=== PATIENT | female | born 1930 | race Caucasian/White ===

== ENCOUNTER 2017-10-23 12:03 | Inpatient (IN) | payer OTHER ==
[~2017-10-23] VITALS: Ht 149.9 cm; Wt 54.0 kg
[~2017-10-23 12:03] MED LIST: ACYCLOVIR 400400 MG PO; ASPIRIN81 M2 PO; FOLIC ACID1 MG PO; METHOTREXATE 22.5 MG PO; PREDNISONE 10 M10 MG PO; UNICOMPLEX M TA1 TA1 PO
[2017-10-23 12:20] LABS: HEMATOCRIT 36.1 % (37.0-47.0); HEMOGLOBIN 12.5 gm/dL (12.0-15.0); MCH 33.2 pg (26.0-34.0); MCHC 34.7 g/dL (28.0-37.0); MCV 95.7 fL (80.0-100.0); MPV 6.7 fl. (7.2-11.1); NUCLEATED RBCS 0 /100WBC; PLATELET COUNT* 308 thou/uL (150-400); RBC 3.77 mil/uL (4.20-5.00); RDW-CV 13.6 % (10.5-14.5); WBC 15.7 thou/uL (4.0-11.0)
[2017-10-23 12:32] LABS: ALBUMIN 2.7 g/dL (3.4-5.0); CALCIUM 9.2 mg/dL (8.5-10.1); CREATININE 0.7 mg/dL (0.6-1.3); TOTAL BILIRUBIN 0.6 mg/dL (<0.1-1.0); TOTAL PROTEIN 6.9 g/dL (6.4-8.2)
[2017-10-23 12:46] LABS: ABSOLUTE LYMPHOCYTES 0.8 thou/uL (0.8-5.3); ABSOLUTE MONOCYTES 0.5 thou/uL (0.0-1.2); ABSOLUTE NEUTROPHILS 14.4 thou/uL (1.6-8.1); PLATELET ESTIMATE ADEQUATE
[2017-10-23 15:00] VITALS: BP 120/46
[2017-10-23] MEDS ORDERED: HYDROCHLOROTH12.5 M1 PO (15:01)
[2017-10-23 15:48] LABS: URINE BILIRUBIN NEGATIVE (Negative); URINE BLOOD TRACE (Negative); URINE CLARITY CLEAR; URINE COLOR YELLOW; URINE GLUCOSE-RANDOM NEGATIVE (Negative); URINE KETONES NEGATIVE (Negative); URINE LEUKOCYTES-REFLEX TRACE (Negative); URINE NITRITE-REFLEX POSITIVE (Negative); URINE PROTEIN 1+ (Negative); URINE SPECIFIC GRAVITY 1.015 (1.005-1.030); URINE UROBILINOGEN 0.2 E.U./dl (0.2-1.0)
[2017-10-23 15:57] LABS: SQUAMOUS 4-10 Moderate /LPF (0-3); URINE RBC 3-10 Few /HPF (0-2); URINE WBC-REFLEX 6-15 Few /HPF (0-5); WBC CLUMPS Few (None Seen)
[2017-10-23 15:58] LABS: CASTS None Seen /LPF (None Seen); CRYSTALS None Seen /LPF (None Seen); MUCUS 4-6 Moderate strn/LPF (None Seen)
[2017-10-23 16:16] LABS: INFLUENZA A ANTIGEN None Detected (None Detect); INFLUENZA B ANTIGEN None Detected (None Detect)
[2017-10-23 20:15] VITALS: BP 139/55
[2017-10-23 23:23] VITALS: BP 130/53
[2017-10-24 04:16] LABS: ABSOLUTE LYMPHOCYTES 0.2 thou/uL (0.8-5.3); ABSOLUTE MONOCYTES 0.8 thou/uL (0.0-1.2); ABSOLUTE NEUTROPHILS 13.9 thou/uL (1.6-8.1); HEMATOCRIT 32.6 % (37.0-47.0); HEMOGLOBIN 11.4 gm/dL (12.0-15.0); LYMPHOCYTES 1.5 %; MCH 33.2 pg (26.0-34.0); MCV 95.1 fL (80.0-100.0); MONOCYTES 5.4 %; MPV 7.3 fl. (7.2-11.1); NUCLEATED RBCS 0 /100WBC; PLATELET COUNT* 305 thou/uL (150-400); POLYS 93.1 %; RBC 3.43 mil/uL (4.20-5.00); RDW-CV 14.3 % (10.5-14.5); WBC 14.9 thou/uL (4.0-11.0)
[2017-10-24 04:30] LABS: ALBUMIN 2.3 g/dL (3.4-5.0); CALCIUM 8.2 mg/dL (8.5-10.1); CREATININE 0.6 mg/dL (0.6-1.3); POTASSIUM 3.7 mmol/L (3.5-5.1); TOTAL BILIRUBIN 0.7 mg/dL (<0.1-1.0); TOTAL PROTEIN 5.4 g/dL (6.4-8.2)
[2017-10-24 05:00] VITALS: BP 156/78
[2017-10-24 07:55] VITALS: BP 129/61
--- NOTE | 2017-10-24 14:47 | EKG ---
[place] [address] ELECTROCARDIOGRAM REPORT Name: RAIZA SALEH Room: [address] ADM IN .R.#: [id number] Admission: 10/23/17 Attend Phys: Caryn Trivedi Discharge: Date of : 30 Report #: [id number] THIS REPORT FOR: //name// [facility] Test Date: 2017-10-23 Test Time: 16:33:11 Pat Name: RAIZA SALEH Department: Room: [address] Gender: F Behavioral Services Tech: : 1930 Requested By: Mark Bhakta Order Number: [id number] Edin MD: Pool Yeung Measurements Intervals Amma Rate: 97 P: 48 AL: 182 QRS: 77 QRSD: 112 T: 44 QT: 364 QTc: 463 Interpretive Statements Sinus rhythm LAE, consider biatrial enlargement Incomplete right bundle branch block Probable inferior infarct, old Electronically Signed On 10-24-2017 14:47:21 CDT by Pool Yeung [email or web address] <ELECTRONICALLY SIGNED> By: Pool Yeung MD, MERGED WITH [facility] 10/24/17 1447 1633 1633 Pool Yeung MD, MERGED WITH [facility] /EPI
[2017-10-24 16:00] VITALS: BP 154/68
[2017-10-25 04:27] LABS: ABSOLUTE LYMPHOCYTES 0.2 thou/uL (0.8-5.3); ABSOLUTE MONOCYTES 0.8 thou/uL (0.0-1.2); BASOPHILS 0.2 %; HEMATOCRIT 32.5 % (37.0-47.0); HEMOGLOBIN 11.5 gm/dL (12.0-15.0); LYMPHOCYTES 1.7 %; MCHC 35.4 g/dL (28.0-37.0); MCV 93.1 fL (80.0-100.0); MONOCYTES 5.7 %; MPV 7.3 fl. (7.2-11.1); NUCLEATED RBCS 0 /100WBC; PLATELET COUNT* 339 thou/uL (150-400); POLYS 92.4 %; RBC 3.49 mil/uL (4.20-5.00); RDW-CV 14.4 % (10.5-14.5); WBC 14.1 thou/uL (4.0-11.0)
[2017-10-25 04:39] LABS: ALBUMIN 2.3 g/dL (3.4-5.0); CALCIUM 8.5 mg/dL (8.5-10.1); CREATININE 0.6 mg/dL (0.6-1.3); POTASSIUM 3.2 mmol/L (3.5-5.1); TOTAL BILIRUBIN 0.5 mg/dL (<0.1-1.0); TOTAL PROTEIN 6.1 g/dL (6.4-8.2)
[2017-10-25 07:30] VITALS: BP 141/60
[2017-10-25 14:54] VITALS: BP 127/61
[2017-10-26 00:21] VITALS: BP 145/78
[2017-10-26 04:17] LABS: ABSOLUTE BASOPHILS 0.1 thou/uL (0.0-0.2); ABSOLUTE LYMPHOCYTES 0.3 thou/uL (0.8-5.3); ABSOLUTE MONOCYTES 1.1 thou/uL (0.0-1.2); ABSOLUTE NEUTROPHILS 20.5 thou/uL (1.6-8.1); BASOPHILS 0.3 %; HEMATOCRIT 32.6 % (37.0-47.0); HEMOGLOBIN 11.2 gm/dL (12.0-15.0); LYMPHOCYTES 1.4 %; MCH 32.3 pg (26.0-34.0); MCHC 34.5 g/dL (28.0-37.0); MCV 93.6 fL (80.0-100.0); MPV 7.2 fl. (7.2-11.1); NUCLEATED RBCS 0 /100WBC; PLATELET COUNT* 377 thou/uL (150-400); POLYS 93.3 %; RBC 3.48 mil/uL (4.20-5.00); RDW-CV 14.2 % (10.5-14.5)
[2017-10-26 04:33] LABS: ALBUMIN 2.2 g/dL (3.4-5.0); CALCIUM 8.9 mg/dL (8.5-10.1); CREATININE 0.6 mg/dL (0.6-1.3); POTASSIUM 4.4 mmol/L (3.5-5.1); TOTAL BILIRUBIN 0.6 mg/dL (<0.1-1.0); TOTAL PROTEIN 6.1 g/dL (6.4-8.2)
[2017-10-26 08:30] VITALS: BP 115/63
[2017-10-26 15:48] VITALS: BP 130/64
--- NOTE | 2017-10-26 16:02 | CON ---
[address] [address] CONSULTATION Name: RAIZA SALEH Room: [address] IN [facility]#: [id number] Admission: 10/23/17 Attend Phys: Caryn Trivedi Discharge: Date of : 30 Report #: [id number] THIS REPORT FOR: //name// CC: Pool Bhakta DATE OF SERVICE: 10/26/2017 ATTENDING PHYSICIAN: Dr. Bhakta. 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 HISTORY OF PRESENT ILLNESS: Chart reviewed, patient examined. This 87-year-old with history of rheumatoid arthritis, who was admitted at the request of her primary care physician due to last few days prior to admission with a cough, shortness of breath. Chest x-ray suggested basilar pneumonitis. 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 She notes remains weak, fatigued, although is intent on going home. She notes she has a poor appetite, poor p.o. intake, does have some ongoing residual dyspnea, abdominal related discomfort. Denies having difficulty voiding at this point. ALLERGIES: None known. MEDICATIONS: Include ipratropium, albuterol inhaler. Levofloxacin, promethazine, p.r.n. analgesics. PAST MEDICAL HISTORY: Includes rheumatoid arthritis, history of Almanza palsy, hypotension, bilateral cataracts, bunionectomy, hysterectomy, skin cancer excision, tonsillectomy. SOCIAL HISTORY: Nonsmoker, no ethanol. FAMILY HISTORY: Noncontributory. REVIEW OF SYSTEMS: As above. PHYSICAL EXAMINATION: GENERAL: She appears chronically ill, undernourished, is pleasant, cooperative, does have some degree of mild encephalopathy. She has a mild to moderate distress [place] [address] CONSULTATION Name: RAIZA SALEH Room: [address]#: [id number] Admission: 10/23/17 Attend Phys: Caryn Trivedi Discharge: Date of : 30 Report #: [id number] VITAL SIGNS: Temperature 98.2, pulse 110, respirations 18-20, blood pressure 115/63. SKIN: Warm, no rashes. HEENT: Unremarkable. NECK: Supple. LUNGS: Few scattered coarse breath sounds. HEART: Regular, tachycardic. I do not appreciate any murmur. ABDOMEN: Soft, nontender. There are no peritoneal signs. GENITOURINARY: Deferred. RECTAL: Deferred. LABORATORY DATA: Chest x-ray showed improving right lower lobe pneumonia, worsening left lower lobe infiltrate. CBC: White count of 22.0, H and H 11.2 and 32.6, platelets of 377. Albumin of 6.6. Electrolytes: Sodium 123, potassium 4.4 chloride 93, bicarbonate is 25, BUN and creatinine 11 and 0.6. AST of 48, ALT of 51. Albumin 2.2, total protein of 6.1, estimated GFR of 95. Urinalysis described above, greater than which are resistant to betalactams, nitrofurantoin, otherwise fairly susceptible. Blood cultures sterile thus far. ASSESSMENT: Complicated urinary tract infection due to moderately resistant to gram-negative susceptible to quinolones, should give us further good coverage with a pneumonitis as well. I think given her age, drop back to 500 daily. It is not quite clear why she has shown evidence of increasing white count, reported as formed stools, certainly if diarrhea, would evaluate for C. diff colitis, at risk due to the broad spectrum antimicrobials. She remains tenuous. <ELECTRONICALLY SIGNED> By: Kyaw Cazares MD 10/26/17 1602 1348 [id number] Cazares MD /nt
[2017-10-26 23:40] VITALS: BP 138/69
[2017-10-27 01:24] VITALS: BP 142/81
[2017-10-27 04:37] LABS: URINE BILIRUBIN NEGATIVE (Negative); URINE BLOOD 1+ (Negative); URINE CLARITY CLEAR; URINE COLOR YELLOW; URINE GLUCOSE-RANDOM NEGATIVE (Negative); URINE KETONES NEGATIVE (Negative); URINE LEUKOCYTES-REFLEX NEGATIVE (Negative); URINE NITRITE-REFLEX NEGATIVE (Negative); URINE PROTEIN 2+ (Negative); URINE SPECIFIC GRAVITY 1.025 (1.005-1.030); URINE UROBILINOGEN 0.2 E.U./dl (0.2-1.0)
[2017-10-27 05:22] LABS: ALBUMIN 2.1 g/dL (3.4-5.0); CREATININE 0.6 mg/dL (0.6-1.3); POTASSIUM 4.4 mmol/L (3.5-5.1); TOTAL BILIRUBIN 0.4 mg/dL (<0.1-1.0)
[2017-10-27 06:03] LABS: HEMATOCRIT 33.3 % (37.0-47.0); HEMOGLOBIN 11.3 gm/dL (12.0-15.0); MCHC 33.9 g/dL (28.0-37.0); MCV 94.3 fL (80.0-100.0); MPV 7.2 fl. (7.2-11.1); NUCLEATED RBCS 0 /100WBC; PLATELET COUNT* 399 thou/uL (150-400); RBC 3.53 mil/uL (4.20-5.00); RDW-CV 14.3 % (10.5-14.5); WBC 22.5 thou/uL (4.0-11.0)
[2017-10-27 06:36] LABS: RENAL EPITHELIAL CELLS 0-3 Few /LPF (None Seen); SQUAMOUS 0-3 Few /LPF (0-3); WBC CLUMPS Few (None Seen)
[2017-10-27 06:37] LABS: BACTERIA-REFLEX >30 Many /HPF (None Seen); COARSE GRANULAR CASTS 0-3 Few /LPF (None Seen); CRYSTALS None Seen /LPF (None Seen); MUCUS 4-6 Moderate strn/LPF (None Seen)
[2017-10-27 06:54] LABS: ABSOLUTE LYMPHOCYTES 0.7 thou/uL (0.8-5.3); ABSOLUTE MONOCYTES 0.5 thou/uL (0.0-1.2); ABSOLUTE NEUTROPHILS 21.4 thou/uL (1.6-8.1); PLATELET ESTIMATE ADEQUATE
[2017-10-27 07:30] VITALS: BP 135/59
[2017-10-27 16:14] VITALS: BP 123/55
[2017-10-28 00:25] VITALS: BP 134/61
[2017-10-28 04:53] LABS: ALBUMIN 1.9 g/dL (3.4-5.0); CALCIUM 8.7 mg/dL (8.5-10.1); CREATININE 0.6 mg/dL (0.6-1.3); POTASSIUM 4.2 mmol/L (3.5-5.1); TOTAL BILIRUBIN 0.4 mg/dL (<0.1-1.0); TOTAL PROTEIN 5.6 g/dL (6.4-8.2)
[2017-10-28 09:00] VITALS: BP 145/59
[2017-10-28 16:15] VITALS: BP 90/47
[2017-10-28 18:14] VITALS: BP 97/53
[2017-10-28 22:34] VITALS: BP 94/52
[2017-10-29 04:18] LABS: ABSOLUTE BASOPHILS 0.1 thou/uL (0.0-0.2); ABSOLUTE LYMPHOCYTES 0.2 thou/uL (0.8-5.3); ABSOLUTE MONOCYTES 0.2 thou/uL (0.0-1.2); BASOPHILS 0.6 %; HEMATOCRIT 34.1 % (37.0-47.0); HEMOGLOBIN 11.9 gm/dL (12.0-15.0); LYMPHOCYTES 1.5 %; MCH 32.7 pg (26.0-34.0); MCHC 34.9 g/dL (28.0-37.0); MCV 93.6 fL (80.0-100.0); MONOCYTES 1.3 %; MPV 6.5 fl. (7.2-11.1); NUCLEATED RBCS 0 /100WBC; PLATELET COUNT* 460 thou/uL (150-400); POLYS 96.6 %; RBC 3.64 mil/uL (4.20-5.00); RDW-CV 14.9 % (10.5-14.5); WBC 15.6 thou/uL (4.0-11.0)
[2017-10-29 06:07] LABS: ALBUMIN 2.1 g/dL (3.4-5.0); CALCIUM 9.3 mg/dL (8.5-10.1); CREATININE 0.8 mg/dL (0.6-1.3); POTASSIUM 4.9 mmol/L (3.5-5.1); TOTAL BILIRUBIN 0.3 mg/dL (<0.1-1.0); TOTAL PROTEIN 5.3 g/dL (6.4-8.2)
[2017-10-29 08:00] VITALS: BP 114/56
[2017-10-29 15:50] VITALS: BP 101/49
[2017-10-30 00:04] VITALS: BP 97/48
[2017-10-30 04:12] LABS: HEMATOCRIT 33.1 % (37.0-47.0); HEMOGLOBIN 11.1 gm/dL (12.0-15.0); MCH 31.4 pg (26.0-34.0); MCHC 33.4 g/dL (28.0-37.0); MPV 6.4 fl. (7.2-11.1); RBC 3.52 mil/uL (4.20-5.00); RDW-CV 14.8 % (10.5-14.5); WBC 16.7 thou/uL (4.0-11.0)
[2017-10-30 04:55] LABS: CALCIUM 9.2 mg/dL (8.5-10.1); TOTAL BILIRUBIN 0.2 mg/dL (<0.1-1.0); TOTAL PROTEIN 5.1 g/dL (6.4-8.2)
[2017-10-30 08:00] VITALS: BP 107/56
[2017-10-30] MEDS ORDERED: LEVAQUIN 500 M500 M2 PO (11:41)
[2017-10-30 11:42] VITALS: BP 97/48
[2017-10-30 11:44] VITALS: BP 97/48
[2017-10-30 15:23] VITALS: BP 97/48
== END 2017-10-30 15:27 | disposition home or self-care (01) | DRG 177 ==
LOC: M.RAD 12:03 → M.3W 13:42
PROVIDERS: Internal Medicine; Specialist; ADMIT Internal Medicine
DX: J69.0 Pneumonitis due to inhalation of food and vomit (principal); E43 Unspecified severe protein-calorie malnutrition; I50.33 Acute on chronic diastolic (congestive) heart failure; E87.1 Hypo-osmolality and hyponatremia; N39.0 Urinary tract infection, site not specified; J15.6 Pneumonia due to other Gram-negative bacteria; M06.9 Rheumatoid arthritis, unspecified; B96.89 Other specified bacterial agents as the cause of diseases classified elsewhere; E87.6 Hypokalemia; I11.0 Hypertensive heart disease with heart failure; Z79.899 Other long term (current) drug therapy; Z98.42 Cataract extraction status, left eye; Z98.41 Cataract extraction status, right eye; Z90.710 Acquired absence of both cervix and uterus; Z85.828 Personal history of other malignant neoplasm of skin; Z68.24 Body mass index [BMI] 24.0-24.9, adult

== ENCOUNTER → 2017-11-23 | Outpatient (CLI) | payer OTHER ==
[~2017-11-23] MED LIST changes: +HYDROCHLOROTH12.5 M1 PO; +LEVAQUIN 500 M500 M2 PO
== END ==
LOC: M.RAD 11:30
DX: J18.1 Lobar pneumonia, unspecified organism (principal); J98.11 Atelectasis; R91.8 Other nonspecific abnormal finding of lung field

== ENCOUNTER → 2018-05-09 | Outpatient (CLI) | payer OTHER | LOC: M.RAD 15:18 | DX: M54.2 Cervicalgia (principal); M47.892 Other spondylosis, cervical region; M05.79 Rheumatoid arthritis with rheumatoid factor of multiple sites without organ or systems involvement ==

== ENCOUNTER → 2018-12-13 | Outpatient (CLI) | payer OTHER | LOC: M.MRI 11:34 | DX: R26.9 Unspecified abnormalities of gait and mobility (principal); R41.82 Altered mental status, unspecified ==

== ENCOUNTER 2018-12-18 11:23 | Inpatient (IN) | payer OTHER ==
[~2018-12-18] VITALS: Ht 121.9 cm; Wt 49.0 kg
[2018-12-18 12:00] VITALS: BP 119/67
[2018-12-18 13:13] LABS: ABSOLUTE BASOPHILS 0.1 thou/uL (0.0-0.2); ABSOLUTE EOSINOPHILS 0.1 thou/uL (0.0-0.7); ABSOLUTE LYMPHOCYTES 0.6 thou/uL (0.8-5.3); ABSOLUTE MONOCYTES 0.5 thou/uL (0.0-1.2); ABSOLUTE NEUTROPHILS 5.1 thou/uL (1.6-8.1); EOSINOPHILS 1.2 %; HEMATOCRIT 38.4 % (37.0-47.0); HEMOGLOBIN 12.8 gm/dL (12.0-15.0); LYMPHOCYTES 9.1 %; MCHC 33.2 g/dL (28.0-37.0); MCV 93.4 fL (80.0-100.0); MONOCYTES 8.5 %; MPV 7.4 fl. (7.2-11.1); NUCLEATED RBCS 0 /100WBC; PLATELET COUNT* 301 thou/uL (150-400); POLYS 80.2 %; RBC 4.11 mil/uL (4.20-5.00); RDW-CV 15.6 % (10.5-14.5); WBC 6.3 thou/uL (4.0-11.0)
[2018-12-18 13:20] LABS: CALCIUM 9.5 mg/dL (8.5-10.1); CREATININE 0.6 mg/dL (0.6-1.3); POTASSIUM 4.5 mmol/L (3.5-5.1)
[2018-12-18 13:24] LABS: ALBUMIN 3.2 g/dL (3.4-5.0); MAGNESIUM 2.3 mg/dL (1.8-2.4); TOTAL BILIRUBIN 0.5 mg/dL (<0.1-1.0); TOTAL PROTEIN 6.8 g/dL (6.4-8.2)
[2018-12-18 16:00] VITALS: BP 113/54
--- NOTE | 2018-12-18 16:27 | NUR ---
pt directly admitted from home with a dx of cva. admission hx obtained from pt who is alert and oriented x4. pleasant lady. vs stable. tracing sr on the monitor technician. on room air and saturation is above 95%. no complaint of pain. pt has no concern besides wanting to know her test results. pt says she lives home alone, dpoa is her son Juan. pt says she went to her pcp last week, had an mri done and was told she has a stroke. pt says she decided to come to the hospital because she was feeling weak after falling on 12/15/18. fall precaution in place. assessment performed see chart. large skin tear found on left elbow. picture taken and placed in pt chart. new oftifoam dressing placed on the area. pt is up with assistance and uses walker well. new iv line inserted in right forearm. iv fluid started at 40 cc per hour as ordered. NIH 0. Bedside swallowing eval done. pt swallows regual food and drinks her aspirin whole with water. neuro consulted. dr mckeon says he will see pt in the morning. pt is hard of hearing and has saundra hearing aid. pt asked about her home medication. pt says she only takes methotrexate, folic acid and aspirin home. her pharmacy was called for updated med list. pharmacy coordinator says that pt has no current medication on file. call light at reach. will continue to monitor pt
[2018-12-18 21:10] VITALS: BP 129/62
[2018-12-19] VITALS: BP 121/66
[2018-12-19 04:00] VITALS: BP 145/63
[2018-12-19 05:32] LABS: CHOLESTEROL 119 mg/dL (<200); HDL CHOLESTEROL 51 mg/dL (>40); LDL CHOLESTEROL 59 mg/dL (<100); TC:HDL 2.3 Ratio (Not establshd); TRIGLYCERIDE 49 mg/dL (<150); VLDL 10 mg/dL (<40)
[2018-12-19 05:52] LABS: SERUM ASSESSMENT Clear
--- NOTE | 2018-12-19 05:52 | NUR ---
PT IS ABLE TO COMMUNICATE HER NEEDS TO STAFF EFFECTIVELY. SHE HAS DENIED THE NEED FOR PAIN MEDICATION UP TO THIS TIME. PT REFUSING SCDs, BUT [facility] SUBQ IS OK AND WAS GIVEN. POSSIBLE DISCHARGE TO A SNF OR [facility]HAB SOON.
[2018-12-19 08:10] VITALS: BP 123/64
[2018-12-19 09:06] LABS: URINE BILIRUBIN NEGATIVE (Negative); URINE BLOOD NEGATIVE (Negative); URINE CLARITY CLEAR; URINE COLOR YELLOW; URINE GLUCOSE-RANDOM NEGATIVE (Negative); URINE KETONES NEGATIVE (Negative); URINE NITRITE-REFLEX NEGATIVE (Negative); URINE PROTEIN NEGATIVE (Negative); URINE UROBILINOGEN 0.2 E.U./dl (0.2-1.0)
[2018-12-19 09:08] LABS: URINE LEUKOCYTES-REFLEX 2+ (Negative)
[2018-12-19 09:15] LABS: BACTERIA-REFLEX 1-9 Few /HPF (None Seen); CASTS None Seen /LPF (None Seen); CRYSTALS None Seen /LPF (None Seen); MUCUS None Seen strn/LPF (None Seen); SQUAMOUS 4-10 Moderate /LPF (0-3); URINE RBC 3-10 Few /HPF (0-2); URINE WBC-REFLEX 6-15 Few /HPF (0-5)
[2018-12-19 09:20] LABS: AMP/METHAMP Negative (Negative); BARBITURATES Negative (Negative); BENZODIAZEPINES Negative (Negative); COCAINE Negative (Negative); METHADONE Negative (Negative); OPIATES Negative (Negative); PCP Negative (Negative); THC Negative (Negative)
--- NOTE | 2018-12-19 11:49 | NUR ---
MET WITH PT TO DISCUSS HOME SITUATION/DC PLANNING. PT LIVES ALONE. SON/OLGA WHO IS HER DPOA LIVES NEXT DOOR. GRANDSON LIVES CLOSE AND ASSISTS AND PT ALSO HAS A HANDIMAN. PT IS FAIRLY INDEPENDENT. USES WALKER PRN. SHE IS ABLE TO COOK AND CLEAN AND DO HER OWN ADLS. HASN'T HAD HH BUT STATES HER SPOUSE HAD IT PRIOR TO HIS PASSING 3YRS AGO. PT HAS NEVER BEEN TO SNF. THERAPY EVALS IN PLACE. WILL FOLLOW
[2018-12-19 11:52] LABS: CALCIUM 9.2 mg/dL (8.5-10.1); CREATININE 0.6 mg/dL (0.6-1.3); POTASSIUM 4.2 mmol/L (3.5-5.1)
--- NOTE | 2018-12-19 11:53 | NUR ---
Nutrition: screen for pressure wound risk. However, consult to dry wall installations mechanic was for "skin tear" on elbow. Wt stable from over a year ago. Defer full assessement at this time.
[2018-12-19 12:07] VITALS: BP 133/68
[2018-12-19 16:25] VITALS: BP 112/66
--- NOTE | 2018-12-19 17:34 | NUR ---
PATIENT RESTING IN BED. PATIENT DENIES ANY PAIN. PATIENT HAS WORKED WITH PHYSICAL AND OCCUPATIONAL THERAPIES. PATIENT IS UP WITH STANDBY ASSIST WITH WALKER. PATIENT WENT FOR MRI THIS AM WITHOUT INCIDENT. PATIENT DENIES ANY NEEDS AT THIS TIME. CALL LIGHT WITHIN REACH. WILL CONTINUE TO MONITOR.
[2018-12-19 20:08] VITALS: BP 119/62
[2018-12-20] VITALS: BP 139/70
[2018-12-20 04:00] VITALS: BP 129/73
[2018-12-20 04:53] LABS: HEMATOCRIT 38.2 % (37.0-47.0); HEMOGLOBIN 12.5 gm/dL (12.0-15.0); MCH 30.8 pg (26.0-34.0); MCHC 32.8 g/dL (28.0-37.0); MCV 93.9 fL (80.0-100.0); MPV 7.3 fl. (7.2-11.1); RBC 4.06 mil/uL (4.20-5.00); RDW-CV 15.5 % (10.5-14.5); WBC 6.2 thou/uL (4.0-11.0)
[2018-12-20 05:16] LABS: CALCIUM 9.2 mg/dL (8.5-10.1); CREATININE 0.7 mg/dL (0.6-1.3); MAGNESIUM 2.4 mg/dL (1.8-2.4)
--- NOTE | 2018-12-20 06:48 | NUR ---
PT IS ABLE TO COMMUNICATE HER NEEDS TO STAFF WITH ONLY MINOR DIFFICULTY; SHE IS [id number]-IKGRVMG AND A LITTLE CONFUSED AT TIMES. SHE HAS DENIED THE NEED FOR PAIN MEDICATION UP TO THIS TIME. PT HAS REFUSED SCDs BUT IS ACCEPTING [facility]. SHE HAS REPORTED SOME CONSTIPATION FEELINGS; GAVE HER SOME PRUNE JUICE AROUND 0400 TODAY, WILL ASK DAY RN TO REQUEST MIRALAX FROM MD SEEING HER TODAY.
[2018-12-20 07:55] VITALS: BP 107/64
[2018-12-20 11:06] LABS: GLYCOHEMOGLOBIN (HGB A1C) 5.3 % (4.8-5.6)
[2018-12-20 11:30] VITALS: BP 94/57
--- NOTE | 2018-12-20 15:52 | NUR ---
WOUND NURSE: PATIENT SEEN TO ADDRESS SKIN TEAR ON THE LEFT ELBOW. PRESENTS A PARTIALLY HEALED SKIN TEAR WITH A SHALLOW OPENING MEASURING 2.0 X 1.5 X 0.1 CM. NO ACTIVE DRAINAGE PRESENT. NO PERIWOUND REDNESS, WARMTH, OR INDURATION. MILD BRUISING TO THE PERIWOUND. STAFF NURSE CARED FOR THIS WOUND BY CLEANSING WITH NORMAL SALINE AND GAUZE, THEN COVERING WITH A BORDEREDD FOAM DRESSING. PATIENT TOLERATED THIS WELL AND WITHOUT COMPLAINTS OF DISCOMFORT.
--- NOTE | 2018-12-20 17:14 | NUR ---
PATIENT RESTING UP IN CHAIR. PATIEN TIS UP STANDBY ASSIST WITH WALKER. PATIENT DENIES ANY PAIN. PATIENT HAS FAIR APPETITE. PATIENT DENIES ANY NEEDS AT THIS TIME. CALL LIGHT WITHIN REACH. WILL CONTINUE TO MONITOR.
[2018-12-20 20:55] VITALS: BP 150/73
[2018-12-21] VITALS: BP 140/81
--- NOTE | 2018-12-21 06:10 | NUR ---
PT IS ABLE TO COMMUNICATE HER NEEDS TO STAFF EFFECTIVELY. SHE HAS DENIED THE NEED FOR PAIN MEDICATION UP TO THIS TIME. NEUROLOGY AND HEME/ONCOLOGY MDs FOLLOWING HER. MED/SURG STATUS. POSSIBLE DISCHARGE IN THE NEXT DAY OR TWO.
[2018-12-21 07:49] VITALS: BP 136/67
--- NOTE | 2018-12-21 11:08 | NUR ---
CONTINUE TO FOLLOW, MET WITH PT. SHE STATES SHE IS NOT STRONG ENOUGH TO GO HOME AND CARE FOR HERSELF AND AWARE NEEDS REHAB OR SNF. PT HAS EVAL FOR REHAB IN PLACE, AWAITING DECISION. DISCUSSED POSSIBLE SNF IF REHAB NOT ACCEPTING. SHE WANTS TO WAIT ON DECISION AND HAS ONCOLOGY CONSULT ALSO. PT STATES HER SON WHO LIVES NEXT DOOR WORKS DOES HER GRANDSON, SHE'S NOT SURE WHO ELSE COULD HELP HER AT HOME BUT SHE PLANS TO RETURN TO BEING INDEPENDENT. STATED SHE WAS GOING TO '[facility]' IN [place] 2 WEEKS AGO AND DRIVING. WILL FOLLOW
[2018-12-21 16:09] VITALS: BP 108/61
--- NOTE | 2018-12-21 16:39 | NUR ---
ASSESSMENT COMPLETE. PT ALERT AND ORIENTED X4. GEORGES BURGOS. CT CHEST/ABD/PELVIS DONE THIS AFTERNOON. CHUDA ORDERED LABS WELL. PT UP IN CHAIR FOR MEALS. DENIES PAIN. DENIES N/V. TAKES MEDICATIONS WITHOUT COMPLICATIONS. PT IS ON ROOM AIR, VSS. BANDAGE TO LEFT ELBOW INTACT. PT IS FALL RISK, BED ALARM ON. SEE ASSESSMENT AND VITALS FOR OTHER DETAILS. CALL LIGHT WITHIN REACH, WILL CONTINUE PLAN OF CARE
[2018-12-21] MEDS ORDERED: PEPCID20 MG PO (18:18)
[2018-12-21] MEDS ORDERED: DEXAMETHASONE1 MG PO (18:19)
[2018-12-21 20:20] VITALS: BP 136/66
[2018-12-21 22:09] LABS: CA 125 10.4 U/mL (0.0-38.1)
[2018-12-22 04:00] VITALS: BP 153/81
--- NOTE | 2018-12-22 07:49 | NUR ---
PT CARE ASSUMED AT 1930. SAT MAINTAINED IN RA. ALERT AND ORIENTED X4. CALL LIGHT WITHIN REACH AND BED IN LOW POSIITON. DENIES PAIN AND SOB. HOURLY ROUNDING DONE FOR PT SAFETY.
[2018-12-22 07:55] VITALS: BP 137/64
[2018-12-22 12:46] VITALS: BP 143/64
--- NOTE | 2018-12-22 17:39 | NUR ---
PATIENT RESTING IN BED. PATIENT DENIES ANY PAIN. PATIENT IS UP STANDBY ASSIST WITH WALKER, GAIT IS UNSTEADY. ADMINISTERED PATIENT A TB SKIN TEST ORDERED TO LEFT ARM THIS EVENING AND PATIENT MOVED TO NEGATIVE PRESSURE AIRFLOW ROOM. PATIENT HAS GOOD APPETITE. PATIENT DENIES ANY NEEDS AT THIS TIME. CALL LIGHT WITHIN REACH. WILL CONTINUE TO MONITOR.
[2018-12-22 20:20] VITALS: BP 105/54
[2018-12-23] VITALS: BP 143/58
--- NOTE | 2018-12-23 05:41 | NUR ---
PT CARE ASSUMED AT 1930. SAT MAINTAINED IN RA. ALERT AND ORIENTED X4. CALL LIGHT WITHIN REACH AND BED IN LOW POSITION. DENIES PAIN AND SOB. HOURLY ROUNDING DONE FOR PT SAFETY.
[2018-12-23 08:00] VITALS: BP 156/72
--- NOTE | 2018-12-23 11:12 | NUR ---
RECEIVED REPORT FORM RICKY AND ASSUMED CARE OF PT @ 2850.PT IS A/O X4 ,VSS,MED-SURG STATUS.PT REMAINS ON ROOM AIR.IV PATENT AND SALINE LOCKED.AIRBORNE ISOLATION MAINTAINED FOR RULE OUT TB.PT IS CALM AND COOPERATIVE WITH NO C/O PAIN.PT LEFT SITTING IN CHAIR WITH CALL LIGHT AND FALL PRECAUTIONS IN PLACE.WILL CONTINUE TO MONITOR.
[2018-12-23 17:17] VITALS: BP 110/64
--- NOTE | 2018-12-23 17:47 | NUR ---
VSS.MED-SURG STATUS.PT PROGRESSING TOWARDS GOALS.IV PATENT AND SALINE LOCKED.NO C/O PAIN.WOUND PICTURES TAKEN.PT SAT UP IN CHAIR FOR MEALS.AIRBORNE ISOLATION MAINTAINED.HOURLY ROUNDING COMPLETED FOR PT SAFETY.CALL LIGHT AND FALL PRECAUTIONS IN PLACE.WILL CONTINUE TO MONITOR FOR DURATION OF SHIFT.
[2018-12-23 20:30] VITALS: BP 98/58
[2018-12-24 04:15] VITALS: BP 142/68
[2018-12-24 08:00] VITALS: BP 156/66
[2018-12-24 16:33] VITALS: BP 148/72
--- NOTE | 2018-12-24 18:24 | NUR ---
PATIENT RESTING IN BED. UP TO CHAIR WITH STANDBY ASSIST. AOX4 BUT FORGETTFUL. VITAL SIGNS STABLE AND PATINE TIS MED/SURG STATUS. HOURLY ROUNDING COMPELTED FOR PAITNET SAFETY. AWAITING APPROVAL FOR REHAB.
[2018-12-24 20:00] VITALS: BP 110/50
[2018-12-25] VITALS (7 sets, daily range): BP systolic 80–123; BP diastolic 41–76
--- NOTE | 2018-12-25 05:13 | NUR ---
ASSUMED CARE OF PT AFTER REPORT AT 1930. PT A&OX4. FORGETFUL. VSS. PHYSICAL ASSESSMENT COMPLETED AND CHARTED. PT ON RA. PT ON MEDSURG STATUS. PT UPSTANDBY TO RESTROOM. PT DENIES ANY PAIN OR DISCOMFORT. PT RESTED WELL ON BED. CALL LIGHT WITHIN REACH.
--- NOTE | 2018-12-25 12:31 | NUR ---
CM HAS BEEN INFORMED BY REHAB [facility], PT HAS BEEN APPROVED FOR ACUTE REHAB PENDING EVAL FROM OT.
--- NOTE | 2018-12-25 18:53 | NUR ---
PT ARRIVED ON UNIT AT 1814. PT SETTLED IN BED, VSS AT THIS TIME. PT EDUCATED TO CALL OUT FOR AMBULATORY NEEDS AT THIS TIME. WILL CONTINUE TO MONITOR AND ASSESS
--- NOTE | 2018-12-26 07:52 | NUR ---
PT ALERT AND ORIENTED. VSS ON RA. ASSESSMENT COMPLETED AND DOCUMENTED. MEDS GIVEN PER EMAR. PT UP WITH WALKER AND GAIT BELT ON STAND BY ASSIST. PT SLEPT WELL THIS SHIFT. DENIES PAIN AND NAUSEA. CALL LIGHT WITHIN REACH. HOURLY ROUNDINGS MADE. WILL CONTINUE TO MONITOR.
[2018-12-26 08:30] VITALS: BP 114/61
--- NOTE | 2018-12-26 11:57 | CON ---
[address] [address] CONSULTATION Name: THERESERAIZA Baig Room: [address] IN .R.#: [id number] Admission: 12/18/18 Attend Phys: Rachel Darden MD Discharge: Date of : 30 Report #: [id number] THIS REPORT FOR: //name// CC: Pool Darden DATE OF SERVICE: 12/24/2018 INFECTIOUS DISEASE CONSULTATION: ATTENDING PHYSICIAN: Dr. Darden. REASON FOR EVALUATION: Multiple brain lesions, consider infectious etiology. HISTORY OF PRESENT ILLNESS: Chart reviewed, patient examined. This is an 88-year-old with history of rheumatoid arthritis, has been on immunosuppressive therapy, who presented to the Emergency Room with complaints of lower extremity weakness, unsteadiness of gait and lightheadedness, had been undergoing evaluation including multiple images of her head that showed evidence of multiple brain lesions, some of which has rim enhancing properties as well as some subacute edema. Differential included metastatic disease versus some sort of EXPERIMENTAL OUTBOARD MOTORS MECHANIC type infectious complication. Additional images failed to show other focal sites of infection including CT of the chest and abdomen. Toxoplasma serology is pending. It is notable she is not anemic. On questioning, she denies any recent fevers or chills. Appetite has generally been okay. She does admit a mild weight loss of 5 pounds. Denies significant pulmonary or gastrointestinal related complaints. She had received 48 hours of ceftriaxone that has been discontinued. ALLERGIES: None known. MEDICATIONS: Include methotrexate, dexamethasone, folic acid, famotidine, ondansetron, melatonin, multivitamin, enoxaparin. PAST MEDICAL HISTORY: As described above, the rheumatoid arthritis, history of hypertension, bilateral cataracts, previous hysterectomy, skin cancers, tonsillectomy. SOCIAL HISTORY: Nonsmoker, no ethanol, no illicit drug use. FAMILY HISTORY: Noncontributory. REVIEW OF SYSTEMS: Otherwise unremarkable with exception of the above in the history of present illness. PHYSICAL EXAMINATION: [place] [address] CONSULTATION Name: RAIZA SALEH Room: [address]#: [id number] Admission: 12/18/18 Attend Phys: Rachel Darden MD Discharge: Date of : 30 Report #: [id number] GENERAL: She is pleasant, alert and cooperative. She generally is lucid and engaged, she appears mildly chronically ill, slightly undernourished. VITAL SIGNS: Temperature 98.2, pulse 72, respirations 20, blood pressure 142/68. SKIN: Warm, dry, no rashes. HEENT: Otherwise, unremarkable. Neck is supple. Normocephalic. Extraocular muscles intact. LUNGS: Diminished breath sounds, otherwise clear. HEART: Regular. I do not appreciate a murmur. ABDOMEN: Soft, nontender, nondistended. EXTREMITIES: No cyanosis. GENITOURINARY AND RECTAL: Deferred. LABORATORY DATA: CT abdomen and pelvis as noted above. Urine culture was sterile. Most recent electrolyte, sodium 137, potassium 4.0, chloride 104, bicarbonate is 24, anion gap of 9, BUN and creatinine 15 and 0.7, glucose of 102. Estimated GFR of 79. LFTs during this hospitalization were otherwise unremarkable. CBC: White count 6.2, H and H 12.5 and 38.2, platelets of 294. ASSESSMENT: Multiple brain lesions. I think this seems less likely this is due to Mycobacterium tuberculosis. We will check a QuantiFERON. I do not think there is a need for isolation. Pulmonary status is stable. There are no changes on imaging suggesting pneumonitis. Workup is ongoing. May need ultimately tissue, noted Hematology/Oncology was following. Withhold other antimicrobials at this point. <ELECTRONICALLY SIGNED> By: Kyaw Cazares MD 12/26/18 1157 0927 [id number] Cazares MD /nt
--- NOTE | 2018-12-26 14:34 | CON ---
[address] [address] CONSULTATION Name: SALEH,RAIZA Jovanni Room: [address] IN .R.#: [id number] Admission: 12/18/18 Attend Phys: Rachel Darden MD Discharge: Date of : 30 Report #: [id number] THIS REPORT FOR: //name// CC: Pool Darden DATE OF SERVICE: 12/19/2018 HISTORY OF PRESENT ILLNESS: This is an 88-year-old female patient who indicated that she was driving until about 2-3 weeks ago. Since then, she has trouble ambulating. She feels weak all over the body. Her memory is not affected. She cannot provide a good history whether the weakness has been progressively becoming worst or whether it started about 2 weeks ago and has been stable. She had an MRI done as an outpatient. She does not know anything which makes this weakness better or worse. There was no associated trauma. REVIEW OF SYSTEMS: She indicates she may have had Almanza's palsy in the past. She was fairly functional until about a few weeks ago. She does have a history of rheumatoid arthritis. She sometime runs low blood pressure. She is very hard of hearing. She does not believe her vision is changed much. She is not having any cardiac, respiratory, GI, , musculoskeletal, constitutional, dermatological, hematological, psychiatric, throat, allergic symptom associated with present symptomatology. PAST MEDICAL HISTORY: Negative for stroke. FAMILY HISTORY: Negative for any early age stroke. SOCIAL HISTORY: She does not smoke or drink any alcohol. PHYSICAL EXAMINATION: Indicates she is alert. She is responsive. Higher function is difficult to do because she is very hard of hearing. She is oriented. Her memory and fund of knowledge looks at her baseline. On cranial nerve examination, 2-12, I did not find much abnormality. I did not localize any visual field deficit in spite of her occipital lobe stroke. She appeared to have symmetrical strength, sensation, reflexes and tone in all 4 extremities. She does reasonably well with udrcze-[id number]. I could not look at the fundus very well. There is no carotid bruit in this patient. Cardiac examination is unremarkable. No respiratory difficulty or rhonchi. Pulses are palpable. She has no edema, cyanosis or jaundice. Blood pressure is 145/63, respirations 16, pulse is 64, temperature is 97.7. LABORATORY DATA: Her white count is 6.3 and sodium is a trace down at 133. She did have an MRI of the brain and that was reviewed and that showed finding consistent with possible stroke, but that looks at least a few weeks old[place] [address] CONSULTATION Name: RAIZA SALEH Room: [address] IN ..#: [id number] Admission: 12/18/18 Attend Phys: Rachel Darden MD Discharge: Date of : 30 Report #: [id number] IMPRESSION: The patient also has a history of rheumatoid arthritis and can have vasculitis there also. She is getting fed up with too many testing, which is being done. I tried to talk to her that we would like to do some more testing. I talked to her about MRI brain with contrast. She wants to proceed with that. I explained to her the potential reactions which can occur with contrast and she understands that. We will see what it shows and we will try to get her evaluated by rehab to see if she is a candidate for rehab because she was pretty functional before all of this happened. Rest of the workup will depend upon that and we will follow the patient along with you. Thank you very much for this referral. <ELECTRONICALLY SIGNED> By: Anthony Wall MD 12/26/18 1434 0851 [id number] Wall MD /nt
--- NOTE | 2018-12-26 15:59 | NUR ---
MOTOR BLOCK MECHANIC SPOKE TO MEDICAL DEVICE TO DISCUSS ABILITY TO ACCEPT THE PATIENT, AND SHE INFORMS THAT REHAB IS AWAITING INSURANCE AUTH. D/C LINING MECHANIC UPDATED THE PATIENT ON THIS INFO AND SHE IS IN AGREEMENT. CM WILL REMAIN AVAILABLE TO ASSIST AND FOLLOW NEEDED.
[2018-12-26 16:00] VITALS: BP 109/61
[2018-12-26 21:15] VITALS: BP 127/58
--- NOTE | 2018-12-27 04:52 | NUR ---
PT REMAINED ALERT AND ORIENTED. VITALS STABLE RA. MEDS GIVEN ORDERED. DRESSING ON LT ELBOW CLEAN AND DRY. PT DENIED PAIN. HOURLY ROUNDING COMPLETED. WILL CONTINUE TO MONITOR.
[2018-12-27 08:30] VITALS: BP 110/65
[2018-12-27 16:00] VITALS: BP 151/80
--- NOTE | 2018-12-27 17:10 | NUR ---
PATIENT IS ALERT AND ORIENTED TODAY, PLEASANT BUT UPSET ABOUT NOT BEING ABLE TO GO TO REHAB UNIT TODAY, INSURACE DENIED. NO COMPLAINTS OF PAIN TODAY, APPETITE IS GOOD. UP WITH WALKER, GAIT BELT AND STAND BY. VITAL SIGNS ARE STABLE ROOM AIR. HAS BEEN IN CHAIR FOR MEALS TODAY. CALL LIGHT IS IN REACH, WILL CONTINUE TO MONITOR.
[2018-12-27 20:40] VITALS: BP 108/64
--- NOTE | 2018-12-28 04:46 | NUR ---
PT REMAINED ALERT AND ORIENTED. VITALS STABLE RA. MEDS GIVEN ORDERED. PT SLEPT THROUGH THE NIGHT. HOURLY ROUNDING COMPLETED. WILL CONTINUE TO MONITOR.
[2018-12-28 08:00] VITALS: BP 134/69
--- NOTE | 2018-12-28 09:54 | NUR ---
Nutrition: Pt has been awaiting discharge; was to go to Rehab but insurance denied. No new albumin since admit. Pt wt WNL, appears to have lost 11 lb from admit last year but no recent wt recorded this week. RN yesterday noted pt with good appetite. Pt with brain lesion, concern for mets but pt refusing biospy. Assessed at low-mild nutrition risk due to lack of more recent info.
--- NOTE | 2018-12-28 15:23 | NUR ---
D/C SPLUNK DEVELOPER INFORMED THAT DR LANG HAD OCLZ-OB-FFJU SCHEDULED FOR [id number]. D/C SPLUNK DEVELOPER AWAITING DECISION OF [id number]. PATIENT ANXIOUSLY AWAITING INSURANCE DECISION, AND HOPEFUL TO GO TO THE ACUTE INPATIENT REHAB UNIT. CM WILL REMAIN AVIALABLE TO ASSIST AND FOLLOW NEEDED.
[2018-12-28 16:30] VITALS: BP 98/54
--- NOTE | 2018-12-28 17:51 | NUR ---
PATIENT HAS BEEN A/O X 4, FORGETFUL AT TIMES. PATIENT HAS DENIED PAIN WHEN ASKED. UP WITH GB AND WALKER. UP IN CHAIR FOR MEALS. PATIENT AMBULTED IN HALLS WITH THERAPY. TOLERATING DIET. HOPEFUL TO BE DISCHARGED SOON. FALL PRECAUTIONS IN PLACE. HOURLY ROUNDING COMPLETED. CALL LIGHT WITHIN REACH. WILL CONTINUE WITH PLAN OF CARE.
[2018-12-28 20:20] VITALS: BP 116/54
--- NOTE | 2018-12-29 05:10 | NUR ---
PT REMAINED ALERT AND ORIENTED. VITALS STABLE RA. MEDS GIVEN ORDERED. PT SLEPT THROUGH THE NIGHT. HOURLY ROUNDING COMPLETED. WILL CONTINUE TO MONITOR.
[2018-12-29 07:55] VITALS: BP 170/68
[2018-12-29] MEDS ORDERED: DEXAMETHASONE1 MG PO (10:04)
[2018-12-29 16:30] VITALS: BP 134/70
--- NOTE | 2018-12-29 18:54 | NUR ---
PATIENT COOPERATIVE W/ ASSESS AND CARES THIS SHIFT. PATIENT STATES THIS AM THAT SHE IS BORED. WORD FIND PUZZLES GIVEN, PATIENT ENGAGED IN THIS ACTIVITY. IV CATH DISCONTINUED THIS AFTERNOON, CATH TIP INTACT, GAUZE/TAPE APPLIED TO SITE. USING WALKER, GAIT BELT W/ TRANSFERS AND AMBULATION. ~TJRN
[2018-12-29 21:00] VITALS: BP 132/67
--- NOTE | 2018-12-30 04:56 | NUR ---
ASSUMED CARES AT 1920. ALERT AND ORIENTED. PLEASANT. DENIED ANY PAIN. UP TO BSC. SLEPT WELL. NO ISSUES OVERNIGHT. CALL LIGHT IN REACH. BED ALARM ON.
[2018-12-30 09:00] VITALS: BP 112/55
[2018-12-30 17:04] VITALS: BP 148/68
--- NOTE | 2018-12-30 18:33 | NUR ---
PATIENT PLEASANT AND COOPERATIVE THIS SHIFT. AMB IN HALLS USING GAIT BELT, FWW, SBA. FAMILY MEMBERS IN TO VISIT THIS AFTERNOON. PATIENT EATING WELL. DENIES PAIN. ~TJRN
--- NOTE | 2018-12-30 18:36 | NUR ---
LY ROUNDS COMPLETED. ~TANIKARLayo
[2018-12-30 20:10] VITALS: BP 143/71
--- NOTE | 2018-12-31 05:11 | NUR ---
PT SLEPT WELL OVERNIGHT. UP WITH GB, WALKER SBA TO BR TO VOID-PT SELF CUES STEPS WHEN AMBULATING "LEFT (FOOT), RIGHT (FOOT)". DENIES PAIN. NO LABS THIS MORNING. NO IV ACCESS. ROOM AIR SAT 96%. PT ANTICIPATING DISCHARGE TO [facility] TODAY FOR REHAB. [place], HAS HEARING AIDES. AOX4, ABLE TO USE CALL LITE AND MAKE NEEDS KNOWN.
[2018-12-31 10:46] VITALS: BP 136/84
--- NOTE | 2018-12-31 12:50 | NUR ---
SARAH called and spoke with Harmony in admissions at [facility] to follow up on status of insurance auth and SW faxed updated progress note and therapy note. Still pending insurance response to [facility] regarding auth. SARAH spoke with pt who expressed frustration to all staff regarding desire to dc today. SARAH explained that there is a good possibility that [facility] will be able to accept today (SARAH followed up with Harmony at [facility] again and made sure that she received updates; Harmony is also hopeful that they will know a response from insurance today). SARAH called pt son Juan and updated on dc planning and possibility for dc today; pt son was also disappointed pt was not set to dc today; pt son said he is "about ready to take her out of there". SARAH discussed with pt son that SARAH will inform pt and pt son of any updates received and timing of dc when insurance auth is approved.
--- NOTE | 2018-12-31 14:46 | NUR ---
PATIENT IS ALERT AND ORIENTED TODAY, PLEASANT BUT BERY ANXIOUS AND AGITATED ABOUT INSURANCE AUTHORIZATION TAKING SO LONG. VITAL SIGNS ARE STABLE ON ROOM AIR. NO COMPLAINTS OF ANY KIND TODAY OTHER THAN THE INSURANCE DELAY. UP WITH STAND, WALKER AND GAIT BELT. CALL LIGHT IS IN REACH, WILL CONTINUE TO MONITOR.
[2018-12-31 16:15] VITALS: BP 136/84
--- NOTE | 2018-12-31 17:30 | NUR ---
PATIENT DISCHARGED TO [facility]. REPORT CALLED. COPY OF CHART AND DISCHARGE ORDERS GIVEN TO TRANSPORTER. PATIENT BELONGINGS PACKED. NO IV PRESENT. PATIENT DENIES ANY FURTHER NEEDS. PATIENT TAKEN BY WHEELCHAIR VAN AT THIS TIME.
== END 2018-12-31 17:30 | DRG 71 ==
LOC: M.2W 11:23 → M.ORTHSURG 12-25 18:16
PROVIDERS: Internal Medicine Hematology & Oncology; Psychiatry & Neurology Neurology; ADMIT Family Medicine
DX: G93.89 Other specified disorders of brain (principal); E44.1 Mild protein-calorie malnutrition; M06.9 Rheumatoid arthritis, unspecified; I10 Essential (primary) hypertension; G51.0 Bell's palsy; Z68.33 Body mass index [BMI] 33.0-33.9, adult; Z90.710 Acquired absence of both cervix and uterus; Z85.828 Personal history of other malignant neoplasm of skin; Z98.41 Cataract extraction status, right eye; Z98.42 Cataract extraction status, left eye

== ENCOUNTER 2019-02-06 11:30 | Emergency (ER) | payer OTHER ==
[~2019-02-06] VITALS: Ht 157.5 cm; Wt 47.2 kg
[~2019-02-06 11:30] MED LIST changes: +DEXAMETHASONE1 MG PO; +PEPCID20 MG PO
[2019-02-06 12:32] LABS: HEMATOCRIT 41.2 % (37.0-47.0); MCH 32.4 pg (26.0-34.0); MCHC 34.1 g/dL (28.0-37.0); MCV 95.2 fL (80.0-100.0); MPV 6.9 fl. (7.2-11.1); NUCLEATED RBCS 0 /100WBC; PLATELET COUNT* 215 thou/uL (150-400); RBC 4.33 mil/uL (4.20-5.00); RDW-CV 17.1 % (10.5-14.5); WBC 9.5 thou/uL (4.0-11.0)
[2019-02-06 12:43] LABS: ANION GAP 5 mmol/L (7-16); BUN 19 mg/dL (7-18); CALCIUM 9.9 mg/dL (8.5-10.1); CHLORIDE 102 mmol/L (98-107); CO2 29 mmol/L (21-32); CREATININE 0.7 mg/dL (0.6-1.3); GLUCOSE 136 mg/dL (70-99); POTASSIUM 3.6 mmol/L (3.5-5.1); PROTIME 10.2 Seconds (9.20-11.50); SODIUM 136 mmol/L (136-145)
[2019-02-06 12:52] LABS: ALBUMIN 2.8 g/dL (3.4-5.0); ALKALINE PHOSPHATASE 95 U/L (46-116); SGOT 21 U/L (15-37); SGPT 38 U/L (30-65); TOTAL BILIRUBIN 0.4 mg/dL (<0.1-1.0); TOTAL PROTEIN 6.2 g/dL (6.4-8.2); TROPONIN-I LEVEL <0.06 ng/mL (<0.06)
[2019-02-06 12:54] LABS: ABSOLUTE LYMPHOCYTES 0.6 thou/uL (0.8-5.3); ABSOLUTE MONOCYTES 0.3 thou/uL (0.0-1.2); ABSOLUTE NEUTROPHILS 8.6 thou/uL (1.6-8.1); PLATELET ESTIMATE ADEQUATE
[2019-02-06 13:18] VITALS: BP 147/77
--- NOTE | 2019-02-06 17:22 | EKG ---
[place] [address] ELECTROCARDIOGRAM REPORT Name: RAIZA SALEH Room: [facility]#: [id number] Admission: 02/06/19 Attend Phys: Discharge: Date of : 30 Report #: [id number] THIS REPORT FOR: //name// [facility] ED Test Date: 2019-02-06 Test Time: 12:15:03 Pat Name: RAIZA SALEH Department: Room: Gender: F Log Peeler: : 1930 Requested By: Jose Spencer Order Number: [id number] MD: Silvio Squires Measurements Intervals Halfway Rate: 63 P: 35 ID: [id number] QRS: 0 QRSD: 106 T: 0 QT: 415 QTc: 425 Interpretive Statements Sinus rhythm Probable left atrial enlargement Left ventricular hypertrophy Lateral infarct, age indeterminate possible Compared to ECG 10/23/2017 16:33:11 Left ventricular hypertrophy now present Myocardial infarct finding still present Electronically Signed On 02-06-2019 17:21:58 CDT by Silvio Squires [email or web address] <ELECTRONICALLY SIGNED> By: Silvio Squires MD, [facility] 02/06/19 1721 1215 1215 Silvio Squires MD, [facility] /EPI
== END 2019-02-06 13:20 | disposition home or self-care (01) ==
LOC: M.ERS 11:30
PROVIDERS: Family Medicine
DX: S00.03XA Contusion of scalp, initial encounter (principal); M06.9 Rheumatoid arthritis, unspecified; Z98.890 Other specified postprocedural states; Z90.710 Acquired absence of both cervix and uterus; Z85.828 Personal history of other malignant neoplasm of skin; Z90.89 Acquired absence of other organs; W18.39XA Other fall on same level, initial encounter; Y92.009 Unspecified place in unspecified non-institutional (private) residence as the place of occurrence of the external cause; Y93.89 Activity, other specified; Y99.8 Other external cause status